=== PATIENT | female | born 1990 | race Caucasian/White ===

== ENCOUNTER → 2017-09-24 08:14 | Outpatient (CLI) | payer BC, SELFPAY ==
--- NOTE | 2017-09-24 08:16 | XR_ITS ---
Left foot Weightbearing Foot 3 Views HISTORY: Medial foot pain ORDERING PHYSICIAN: Lisa Gustafson DPM PATIENT AGE: 27 years COMPARISON: None FINDINGS: No fracture or dislocation. No lytic or blastic change. There is normal mineralization.. The joint spaces are well-preserved. No significant degenerative/arthritic changes. No erosive changes evident. IMPRESSION: Negative, no acute finding
--- NOTE | 2017-09-24 08:16 | XR_ITS ---
Right foot Weightbearing Foot 3 Views HISTORY: Follow-up surgery ORDERING PHYSICIAN: Lisa Gustafson DPM PATIENT AGE: 27 years COMPARISON: 04/17/2013 FINDINGS: There has been prior bunionectomy of the distal first metatarsal with placement of a large staple at the proximal aspect of the proximal phalanx of the great toe with some decrease in the hallux valgus deformity. There remains [id number] hallux valgus with first metatarsophalangeal angle of 32 degrees. There has been prior fusion of the first metatarsal tarsal joint with a dorsomedial bone plate. No acute fracture or dislocation. No lytic or blastic change. IMPRESSION: Status post bunionectomy of the distal first metatarsal with fusion of the first metatarsotarsal joint with moderate hallux valgus
[2017-09-24 10:54] LABS: Basophils % 0.3 % (0.1-2.0); Eosinophils # 0.1 K/mm3 (0.0-0.4); Eosinophils % 1.7 % (0.1-12.0); Hematocrit 40.7 % (37.0-47.0); Hemoglobin 13.3 g/dL (12.2-16.2); Lymphocytes # 2.1 K/mm3 (0.7-4.5); Lymphocytes % 34.3 K/mm3 (10-50); Mean Corpuscular HGB Conc 32.8 g/dL (31.8-35.4); Mean Corpuscular Hemoglobin 29.7 pg (27.0-31.2); Mean Corpuscular Volume 90.6 fl (81-99); Mean Platelet Volume 8.4 fl (7.4-10.4); Monocytes # 0.3 K/mm3 (0.1-1.0); Monocytes % 4.2 % (1.7-9.3); Neutrophils # 3.6 K/mm3 (1.8-7.8); Neutrophils % 59.5 % (37.0-80.0); Platelet Count 156 K/mm3 (142-424); Red Blood Count 4.49 M/mm3 (4.20-5.40); Red Cell Distribution Width 12.4 % (11.5-17.5)
[2017-09-24 11:53] LABS: Anion Gap 12.1 mEq/L (5-15); Blood Urea Nitrogen 14 mg/dL (7-18); Carbon Dioxide 28 mmol/L (21.0-32.0); Chloride 106 mmol/L (98-107); Creatinine,Serum 0.69 mg/dL (0.55-1.02); Estimated Glomerular Filt Rate 103 ml/min (>60); GFR (African American) 124 ML/MIN (>60); Glucose 87 mg/dL (74-106); Potassium 4.1 mmoL/L (3.5-5.1); Sodium 142 mmol/L (136-145)
[2017-09-24 11:55] LABS: HCG,Quantitative 1 mIU/mL
== END ==
PROVIDERS: Visit Provider Podiatrist
DX: M79.672 Pain in left foot (principal); M79.671 Pain in right foot
CPT/HCPCS: 36415; 73630; 80048; 84702; 85025

== ENCOUNTER → 2017-10-25 08:21 | Outpatient (CLI) | payer BC, SELFPAY ==
--- NOTE | 2017-10-25 08:22 | XR_ITS ---
XR foot wt bearing LT 3V HISTORY: Follow-up fusion ITS.REASON: postop views ORDERING PHYSICIAN: Lisa Gustafson DPM PATIENT AGE: 27 years COMPARISON: 10/11/2017 FINDINGS: The cast has been removed. There has been prior arthrodesis of the first metatarsal tarsal junction with a dorsal bone plate and an oblique screw through the osteotomy of the base of the first metatarsal. There is good alignment. IMPRESSION: Interval cast removal otherwise no change status post arthrodesis and osteotomy of the first metatarsotarsal junction with good alignment
== END ==
PROVIDERS: Visit Provider Podiatrist
DX: Z98.890 Other specified postprocedural states (principal)
CPT/HCPCS: 73630

== ENCOUNTER → 2017-11-07 10:43 | Outpatient (CLI) | payer BC, SELFPAY ==
--- NOTE | 2017-11-07 10:43 | XR_ITS ---
XR foot wt bearing LT 3V HISTORY: Follow-up surgery/fusion ITS.REASON: post-op views ORDERING PHYSICIAN: Lisa Gustafson DPM PATIENT AGE: 27 years COMPARISON: None FINDINGS: Good alignment status post arthrodesis of the first metatarsal tarsal joint stabilized by a dorsal medial bone plate and an oblique screw appears stable. There is mild hypertrophic change along the ventral aspect of the joint space. IMPRESSION: No change in good alignment status post arthrodesis first metatarsal tarsal joint
== END ==
LOC: LAB 10:43 → RAD 10:48
PROVIDERS: Visit Provider Podiatrist
DX: Z98.890 Other specified postprocedural states (principal)
CPT/HCPCS: 73630

== ENCOUNTER → 2017-11-18 12:30 | Outpatient (CLI) | payer BC, SELFPAY ==
[2017-11-18 12:46] LABS: Basophils % 0.4 % (0.1-2.0); Eosinophils # 0.2 K/mm3 (0.0-0.4); Eosinophils % 3.8 % (0.1-12.0); Hematocrit 40.2 % (37.0-47.0); Mean Corpuscular HGB Conc 32.3 g/dL (31.8-35.4); Mean Corpuscular Hemoglobin 29.1 pg (27.0-31.2); Mean Corpuscular Volume 90.1 fl (81-99); Monocytes # 0.3 K/mm3 (0.1-1.0); Monocytes % 5.7 % (1.7-9.3); Neutrophils # 2.1 K/mm3 (1.8-7.8); Neutrophils % 47.2 % (37.0-80.0); Platelet Count 162 K/mm3 (142-424); Red Blood Count 4.47 M/mm3 (4.20-5.40); Red Cell Distribution Width 12.5 % (11.5-17.5); White Blood Count 4.5 K/mm3 (4.8-10.8)
[2017-11-18 13:57] LABS: C-Reactive Protein 1.1 mg/L (0.0-0.9)
[2017-11-18 14:41] LABS: Erythrocyte Sedimentation Rate 21 mm/hr (0-20)
== END ==
PROVIDERS: Visit Provider Podiatrist
DX: Z98.890 Other specified postprocedural states (principal)
CPT/HCPCS: 36415; 85025; 85651; 86140; 87070; 87205

== ENCOUNTER → 2017-12-10 13:56 | Outpatient (CLI) | payer BC, SELFPAY ==
--- NOTE | 2017-12-10 13:56 | XR_ITS ---
XR foot wt bearing LT 3V HISTORY: Follow-up fusion/surgery ITS.REASON: post-op views ORDERING PHYSICIAN: Lisa Gustafson DPM PATIENT AGE: 27 years COMPARISON: 11/07/2017 FINDINGS: Status post fusion of the first metatarsal tarsal joint with dorsal bone plate. There remains good alignment. No acute findings evident. IMPRESSION: Good alignment status post fusion of the first metatarsal tarsal joint
== END ==
PROVIDERS: Visit Provider Podiatrist
DX: Z98.890 Other specified postprocedural states (principal)
CPT/HCPCS: 73630

== ENCOUNTER 2017-12-10 15:00 | Outpatient (RCR) | payer BC, SELFPAY ==
--- NOTE | 2017-11-22 11:10 | HMH.PTOPEV ---
PT Outpatient Evaluation Rehab PT Outpatient Evaluation Start: 11/22/17 10:17 Freq: Status: Active Protocol: Document 11/22/17 10:18 MICHAEL (Rec: 11/22/17 11:10 MICHAEL [id number]) Electronically Signed By Marcelino Sanchez, PT 11/22/17 10:18 Outpatient Therapy Subjective History Subjective History Pt presents s/p L lapidus bunionectomy on 10/11/17, with some lingering L foot soreness /pain. Pt reports increased L foot pain with wt. bearing activities, and some residual weakness. Pt reports same procedure on R foot with quicker recovery, however, reports 'this one feels okay, just think it's healing a bit slower'. Chief Complaint Pain Stiff Weakness Symptom Type Ache Sharp Dull Symptoms Relieved By Rest/Positioning Ice Symptoms Aggravated By Standing Physical Activity Walking Prior Functional Limitations Standing Walking Current Functional Limitations Housework Standing Recreation Activity Stairs Symptom Description Constant but Variable Level of pain today (0-10) 6 Pain scale - at its best (0-10) 3 Pain scale - at its worst (0-10) 9 Ankle/Foot Eval Gait Observation General Gait Pattern Observation Antalgic Gait Assistive Device Ambulation Assistive Device Axillary Crutches Palpation Tenderness left Ankle/Foot Palpation Overall Comment / sx. area/1st MT ROM right Ankle/Foot Dorsiflexion w/Knee Extended 0-20 Active Range Motion (degrees) Ankle/Foot Plantar Flexion Active Range 0-50 of Motion (degrees) Ankle/Foot Eversion Active Range of 0-15 Motion (degrees) Ankle/Foot Inversion Active Range of 0-60 Motion (degrees) Ankle/Foot ROM Limitations Soft Tissue Tightness Great Toe Metatarsophalangeal Extension 0-15 Active Range Motion (degrees) Great Toe Metatarsophalangeal Flexion 0-45 Active Range of Motion (degrees) left Ankle/Foot Dorsiflexion w/Knee Extended +10 Active Range Motion (degrees) Ankle/Foot Plantar Flexion Active Range 10-45 of Motion (degrees) Ankle/Foot Eversion Active Range of 0-15 Motion (degrees)
== END 2017-12-10 15:01 | disposition home or self-care (01) ==
LOC: PT 15:00
PROVIDERS: Family Provider Family Medicine; Visit Provider Podiatrist
DX: Z98.890 Other specified postprocedural states (principal)
CPT/HCPCS: 97010; 97014; 97016; 97110; 97112; 97140; 97163; G0283

== ENCOUNTER → 2017-12-11 15:54 | Outpatient (CLI) | payer BC, SELFPAY ==
--- NOTE | 2017-12-11 15:54 | XR_ITS ---
XR foot wt bearing RT 3V HISTORY: Medial right foot pain ITS.REASON: pain ORDERING PHYSICIAN: Lisa Gustafson DPM PATIENT AGE: 27 years COMPARISON: 09/24/2017 FINDINGS: There has been prior bunionectomy of the distal first metatarsal with placement of a large staple at the proximal aspect of the proximal phalanx of the great toe with no change in the mild hallux valgus and mild valgus angulation of the distal aspect of the first metatarsal. There has been prior fusion of the first metatarsal tarsal joint with a dorsomedial bone plate. No acute fracture or dislocation. No lytic or blastic change. IMPRESSION: Status post bunionectomy of the distal first metatarsal with fusion of the first metatarsotarsal joint with moderate hallux valgus with overall no significant change
== END ==
PROVIDERS: Visit Provider Podiatrist
DX: Z01.818 Encounter for other preprocedural examination (principal); M79.671 Pain in right foot
CPT/HCPCS: 73630

== ENCOUNTER → 2017-12-26 12:10 | Outpatient (CLI) | payer SELFPAY ==
--- NOTE | 2017-12-26 12:10 | XR_ITS ---
XR foot wt bearing RT 3V HISTORY: Follow-up surgery ITS.REASON: post-op view ORDERING PHYSICIAN: Lisa Gustafson DPM PATIENT AGE: 27 years COMPARISON: 12/12/2017 FINDINGS: The cast has been removed. Dorsal bone plate is once again noted at the proximal aspect of the first metatarsal. There are 2 screws present at the proximal first metatarsal extending into the base of the second metatarsal. Osteotomy noted at the base of the first metatarsal. There is been prior bunionectomy at the first metatarsal with a staple within the proximal aspect of the proximal phalanx of the great toe and a screw within the distal aspect of the second metatarsal. Overall no change compared to the previous exam. IMPRESSION: Postsurgical changes as described above which appear stable
== END ==
PROVIDERS: Visit Provider Podiatrist
DX: Z98.890 Other specified postprocedural states (principal)
CPT/HCPCS: 73630

== ENCOUNTER → 2018-01-09 10:32 | Outpatient (CLI) | payer BC, SELFPAY ==
--- NOTE | 2018-01-09 10:34 | XR_ITS ---
XR foot wt bearing RT 3V, XR foot wt bearing LT 3V Ordering Physician: Lisa Gustafson DPM Patient Age: 27 years: Female HISTORY: ITS.REASON: post-op TECHNIQUE: Right foot 3 views weightbearing Left foot 3 view weightbearing COMPARISON. Multiple previous studies bilateral ======= RIGHT FOOT 3 view weightbearing prior bunionectomy of distal first metatarsal withplacement of metallic stable at proximal aspect of the proximal phalanx ofthe great toe .There has been resection of the medial head of the first metatarsal Reduced mild hallux valgus and mild valgusangulation of the distal aspect of the first metatarsal on today's study versus initial studies. The initial plate right which bridged and fused the first tarsal-metatarsal joint has been revised. Now the The shorter dorsal plate seen on 12/26/2017 appears to involve just the proximal first metatarsal & secured by several screws entering posteriorly.,. There are 2 longer screws entering medially continue through the proximal first metatarsal into the proximal second metatarsal.. These features appear stable when compared to 12/26/2017. Also note a small screw entering the dorsal head of second metatarsal which is stable since 12/26/2017 but new since 12/11/2017.... Question subtle changes at the IP joint of second toe as well. Surgical correlation required here . No acute fracture or dislocation. No lytic or blastic change.. Soft tissue swelling persists at the foot IMPRESSION: Status post bunionectomy procedure. Osseous and fixation elements stable since 12/26/2017 radiograph ========= LEFT FOOT 3 views weightbearing foot On the left comparison is made to 620 12/02 and 11/07/2017. fusion at the first tarsal metatarsal joint with dorsal bone plate applied here superior multiple screws. There remains good alignment at the surgical region and first toe. Upper normal distance between of first and second metatarsal noted and stable stable. IMPRESSION Stable position of osseous and fixation elements. Fusion first metatarsal metatarsal joint
== END ==
PROVIDERS: Visit Provider Podiatrist
DX: Z98.890 Other specified postprocedural states (principal)
CPT/HCPCS: 73630

== ENCOUNTER → 2018-02-06 09:48 | Outpatient (CLI) | payer BC, SELFPAY ==
--- NOTE | 2018-02-06 09:50 | XR_ITS ---
XR foot wt bearing LT 3V HISTORY: Follow-up surgery ITS.REASON: postop views ORDERING PHYSICIAN: Lisa Gustafson DPM PATIENT AGE: 27 years COMPARISON: 01/09/2018 FINDINGS: Status post first metatarsal tarsal fusion with posterior bone plate in place. There is good alignment with no evidence of orthopedic complication. IMPRESSION: Overall no change status post first metatarsal tarsal fusion
--- NOTE | 2018-02-06 09:50 | XR_ITS ---
XR foot wt bearing RT 3V HISTORY: Follow-up surgery ITS.REASON: postop views ORDERING PHYSICIAN: Lisa Gustafson DPM PATIENT AGE: 27 years COMPARISON: 01/09/2018 FINDINGS: Status post bunionectomy of the first metatarsal distally with a staple in the proximal aspect of the proximal phalanx of the first digit. A bone plate present overlying the proximal aspect of the first metatarsal. Displacement does not appear flush with the overlying bone. There are 2 transverse screws through the proximal aspect of the first metatarsal into the proximal aspect of the second metatarsal. The most proximal screws unchanged. A second screw is present through the proximal to mid aspect of the first metatarsal into the proximal to mid aspect of the second metatarsal. THIS SCREW HAS SLIGHTLY WITHDRAWN COMPARED TO THE PREVIOUS EXAM by approximately 2 mm. IMPRESSION: Postsurgical changes as described above. Prior bunionectomy. There is a screw which appears to be distracting at the proximal to mid aspect of the first metatarsal as described above
== END ==
PROVIDERS: Visit Provider Podiatrist
DX: Z98.890 Other specified postprocedural states (principal)
CPT/HCPCS: 73630

== ENCOUNTER 2018-02-25 09:30 | Outpatient (RCR) | payer BC, SELFPAY ==
--- NOTE | 2018-02-12 11:13 | HMH.PTOPEV ---
PT Outpatient Evaluation Rehab PT Outpatient Evaluation Start: 02/12/18 08:16 Freq: Status: Active Protocol: Document 02/12/18 08:32 LITTLEKETTY (Rec: 02/12/18 09:01 LUIS [id number]) Electronically Signed By Dino Prince, PT 02/12/18 08:32 Outpatient Therapy Subjective History Subjective History Pt. is a 27 year old female presenting s/p bunionectomy revision of the R foot which occured on 12-12-17. Pt. has been wearing a spacer between the great toe and the second digit, as well as a CAM walking boot for the past 4 weeks. Chief Complaint Pain Symptom Type Ache Symptoms Relieved By Rest/Positioning Ice Symptoms Aggravated By Standing Physical Activity Walking Prior Functional Limitations None Current Functional Limitations Driving Standing Recreation Activity Walking Stairs Symptom Description Constant but Variable Pain at Rest Activity Dependent Level of pain today (0-10) 3 Pain scale - at its best (0-10) 3 Pain scale - at its worst (0-10) 7 Ankle/Foot Eval Palpation Tenderness right Ankle/Foot Palpation Findings Tenderness Ankle/Foot Palpation Overall Comment 1/4 TTP along R 5th metatarsal and R posterolateral foot ROM left Ankle/Foot ROM Reason Not Measured Within Functional Limits Great Toe ROM Reason Not Measured Within Functional Limits right Ankle/Foot Dorsiflexion w/Knee Extended WNL per observation Active Range Motion (degrees) Ankle/Foot Plantar Flexion Active Range WNL per observation of Motion (degrees) Ankle/Foot Eversion Active Range of WNL per observation Motion (degrees) Ankle/Foot Inversion Active Range of WNL per observation Motion (degrees) Great Toe Metatarsophalangeal Extension 0 per observation Active Range Motion (degrees) Great Toe Metatarsophalangeal Extension WNL Passive Range Motion (degrees) Great Toe Metatarsophalangeal Flexion <10 per observation Active Range of Motion (degrees) Great Toe Metatarsophalangeal Passive WNL Flexion Range Motion (degrees) Great Toe ROM Limitations Pain MMT Ankle Dorsiflexion Strength Grade 5 Normal Ankle Plantarflexion Strength Grade 5 Normal Foot Eversion Strength Grade Not Tested Foot Inversion Strength Grade Not
== END 2018-02-25 09:31 | disposition home or self-care (01) ==
LOC: PT 09:30
PROVIDERS: Family Provider Family Medicine; Visit Provider Podiatrist
DX: Z98.890 Other specified postprocedural states (principal)
CPT/HCPCS: 97010; 97014; 97110; 97140; 97163; G0283

== ENCOUNTER → 2018-03-17 08:59 | Outpatient (CLI) | payer BC, SELFPAY ==
--- NOTE | 2018-03-17 09:01 | XR_ITS ---
XR foot wt bearing LT 3V HISTORY: Follow-up surgery ITS.REASON: postop views ORDERING PHYSICIAN: Lisa Gustafson DPM PATIENT AGE: 27 years COMPARISON: None FINDINGS: There is a bone plate over the dorsal medial aspect of the first metatarsal tarsal junction along with an oblique screw at this region as well. Normal alignment. No fracture or dislocation. Mild hypertrophic changes are present at the base of the first and second metatarsals junction. IMPRESSION: Postsurgical changes of the left foot as described above unchanged
--- NOTE | 2018-03-17 09:01 | XR_ITS ---
XR foot wt bearing RT 3V HISTORY: Follow-up surgery ITS.REASON: postop views ORDERING PHYSICIAN: Lisa Gustafson DPM PATIENT AGE: 27 years COMPARISON: 02/06/2018 FINDINGS: Status post bunionectomy of the first metatarsal distally with a staple in the proximal aspect of the proximal phalanx of the first digit. Dorsal bone plate is noted over the proximal aspect of the first metatarsal stabilizing a nondisplaced transverse fracture proximally. There are 2 transverse screws in the proximal aspect of the first metatarsal one which extends into the base of the second metatarsal and one of which extends into the proximal shaft of the second metatarsal. The screw may be distracted slightly as noted previously. A small screws present in the tip of the second metatarsal. There is good alignment. IMPRESSION: Postsurgical changes of the right foot which appear stable as described above
== END ==
PROVIDERS: PCP Family Medicine; Visit Provider Podiatrist
DX: Z98.890 Other specified postprocedural states (principal)
CPT/HCPCS: 73630

== ENCOUNTER → 2018-06-19 10:25 | Outpatient (CLI) | payer BC, SELFPAY ==
--- NOTE | 2018-06-19 10:36 | XR_ITS ---
XR sacrum coccyx min 2V CLINICAL INDICATION: ITS.REASON: LOW BACK PAIN ORDERING PHYSICIAN: ADEOLA Bueno PATIENT AGE: 28 years Comparison: None FINDINGS: No bony or joint abnormality. As I joints have an unremarkable appearance. IMPRESSION: Negative sacrum/coccyx
--- NOTE | 2018-06-19 10:37 | XR_ITS ---
EXAM: XR lumbar spine min 4V HISTORY: ITS.REASON: OW BACK PAIN ORDERING PHYSICIAN: ADEOLA Bueno PATIENT AGE: 28 years COMPARISON: None FINDINGS: Normal alignment. No fracture or dislocation. No lytic or blastic change. No significant degenerative change. The disc spaces are preserved. There is a mild lower lumbar curvature convex left IMPRESSION: Minimal lower lumbar curvature convex left otherwise negative lumbar spine
== END ==
PROVIDERS: PCP Family Medicine; Visit Provider Physician Assistant
DX: M54.5 Low back pain (principal)
CPT/HCPCS: 72110; 72220

== ENCOUNTER → 2018-06-20 15:38 | Outpatient (CLI) | payer BC, SELFPAY ==
--- NOTE | 2018-06-20 15:45 | CT_ITS ---
CT abdomen pelvis wo con CLINICAL INDICATION: Low back pain with hematuria, flank pain ITS.REASON: HEMATURIA ORDERING PHYSICIAN: ADEOLA Bueno PATIENT AGE: 28 years COMPARISON: None TECHNIQUE: Axial images obtained with sagittal and coronal reformats. All CT scans at the facility use one or more dose reduction, viz: automated exposure control, ma/kV adjustment per patient size (including targeted exams where dose is matched to indication, i.e. head), or iterative reconstruction technique. PROCEDURE: Oral Contrast: None IV Contrast: None . FINDINGS: Lung bases are clear. There has been a prior cholecystectomy. The liver, spleen, and adrenal glands have an unremarkable unenhanced appearance. There are small lymph nodes in the periaortic region. No renal or ureteral calculi. No hydronephrosis. Unremarkable urinary bladder. There is no evidence of appendicitis or diverticulitis. Prior hysterectomy. No pelvic mass abnormal fluid collection or focal inflammatory change or focal fluid collection evident. No acute bony anomalies. IMPRESSION: No acute abdominal or pelvic findings
== END ==
PROVIDERS: PCP Family Medicine; Visit Provider Physician Assistant
DX: R31.9 Hematuria, unspecified (principal)
CPT/HCPCS: 74176

== ENCOUNTER → 2018-09-16 15:08 | Outpatient (CLI) | payer BC, SELFPAY ==
--- NOTE | 2018-09-16 15:15 | XR_ITS ---
XR foot wt bearing LT 3V HISTORY: ITS.REASON: pain ORDERING PHYSICIAN: Lisa Gustafson DPM PATIENT AGE: 28 years COMPARISON: Weight-bearing views left foot 03/17/2018 FINDINGS: A metallic plate is seen fusing the first cuneiform bone with the base of the first metatarsal fixated by 5 threaded screws the proximal 2 screws are in the first cuneiforms bone the distal 2 screws are in the base of the first metatarsal and there is an oblique threaded screw connecting the first cuneiform bone with with the first metatarsal base of the distal first metatarsal appears normal and the proximal distal phalanx of the great toe are normal. The foot is otherwise unremarkable. The plantar arch is normal.. The joint spaces are well-preserved. No significant degenerative/arthritic changes. No erosive changes evident. IMPRESSION: Stable postsurgical changes with fusion first cuneiform bone into the base of the first metatarsal
--- NOTE | 2018-09-16 15:15 | XR_ITS ---
XR foot wt bearing RT 3V HISTORY: ITS.REASON: pain ORDERING PHYSICIAN: Lisa Gustafson DPM PATIENT AGE: 28 years COMPARISON: Weight-bearing films right foot 03/17/2018 FINDINGS: Metallic hardware is again seen at the base of first metatarsal stable and unchanged from the previous study. 2 horizontally directed threaded screws traverse the base of the first metatarsal head driven into the cortex of the base of the second metatarsal. There has been osteotomy through the first metatarsal head for bunionectomy. The metallic staple seen in the base of the proximal phalanx of the great toe. A tiny screw is seen in the head of the second metatarsal. The plantar arch is normal. The soft tissues are normal. Stable post bunionectomy surgery IMPRESSION: Stable post bunionectomy surgery
== END ==
PROVIDERS: PCP Family Medicine; Visit Provider Podiatrist
DX: M79.671 Pain in right foot (principal)
CPT/HCPCS: 73630

== ENCOUNTER → 2020-01-11 16:17 | Outpatient (CLI) | payer BC, SELFPAY ==
--- NOTE | 2020-01-11 16:19 | XR_ITS ---
PROCEDURE: XR FOOT WT BEARING RT 3V CLINICAL INDICATION: pain Right foot pain for a month. Patient had bunion surgery a couple months ago. COMPARISON: [id number] XR foot wt bearing LT 3V from 03/17/2018 [id number] XR foot wt bearing RT 3V from 03/17/2018 [id number] XR foot wt bearing LT 3V from 09/16/2018 [id number] XR foot wt bearing RT 3V from 09/16/2018 FINDINGS: Again noted metallic hardware at the base of the 1st metatarsal stable, unchanged from the prior study. There has been osteotomy to the 1st metatarsal head for bunionectomy. The metallic staple is again seen in the base of the proximal phalanx of the great toe. A tiny screw is also again seen in the head of the 2nd metatarsal. Redemonstrated bony fusion of the 1st tarsometatarsal articulation. There is a hallux valgus with moderate arthrosis of the 1st MTP articulation. There is also mild/moderate arthrosis of the 2nd MTP articulation. The plantar arch is unremarkable. No acute bony pathology is noted. The soft tissues are normal. IMPRESSION: 1. No acute findings. 2. Hallux valgus with moderate arthrosis of the 1st MTP articulation. Mild/moderate arthrosis of the 2nd MTP articulation. 3. Stable post bunionectomy surgery. Dictated by: Sara Forbes 01/11/2020 16:54 Electronically signed by Sara Forbes in [place] 01/11/2020 16:54
== END ==
PROVIDERS: PCP Family Medicine; Visit Provider Podiatrist
DX: M79.673 Pain in unspecified foot (principal)
CPT/HCPCS: 73630

== ENCOUNTER → 2021-02-25 11:24 | Outpatient (CLI) | payer BC, SELFPAY | PROVIDERS: Visit Provider Nurse Practitioner Family | DX: Z20.822 Contact with and (suspected) exposure to COVID-19 (principal); U07.1 COVID-19 | CPT/HCPCS: C9803; U0003; U0005 ==

== ENCOUNTER 2022-07-27 11:27 | Emergency (ER) | payer MEDICAID, SELFPAY ==
[2022-07-27 11:45] VITALS: BP 113/81; PULSE 97; RESP 20; TEMP 37; O2SAT 96; BMI 25.8
[2022-07-27 12:00] LABS: UTC Strep Screen (Rapid) Negative (Negative)
--- NOTE | 2022-07-27 12:06 | EXP.UTC ---
Discharge Plan Disposition Patient Disposition: Home, Self-Care Condition: Good Prescriptions Prescriptions: New prednisone [prednisone] 20 mg tablet 20 mg PO BID 5 Days Qty: 10 0RF amoxicillin-pot clavulanate 875-125 mg Tablet 1 tab PO Q12H Qty: 20 0RF No Action amitriptyline 25 mg tablet 50 mg PO DAILY 30 Days Qty: 60 Label Comments: escitalopram oxalate 10 mg tablet PO 30 Days Qty: 30 Referrals Follow up/Referrals: Osvaldo Matos [Primary Care Provider] - See instructions Clinical Impressions Clinical Impression: Bilateral otitis media Instructions Patient Instructions: DI for Otitis Media (Middle Ear Infection)-Child Discharge ED Provider[place] Анна Cruz [facility] [place] General Stated complaint: Sore throat bodyaches Mode of Arrival: Ambulatory Source of Information: Patient Limitations: No Limitations Time Seen by Provider: 07/27/22 12:06 Description of Symptoms (Recalled from Triage Doc. by RN): sore throat, body aches, and both ears HEENT Symptoms (Recalled from RN notes): Yes Resp Symptoms (Recalled from RN notes): No Skin Symptoms (Recalled from RN notes): No MS Symptoms (Recalled from RN notes): No Functional Status (Recalled from RN notes): n/a History of Present Illness Provider Complaint: Sore throat, body aches, ear pain, swollen gland X 4 days. No fever. Onset (ago): day(s) (4) Relieving factors: none Exacerbating factors: none Associated symptoms: fever/chills, headaches and malaise Treatments prior to arrival: none Related Data Home Medications Medication Instructions Recorded Confirmed amitriptyline 25 mg tablet 50 mg PO DAILY stomach pains after 09/24/17 02/25/21 gb sx 30 days ##60 escitalopram oxalate 10 mg tablet PO 30 days #30 tabs 09/16/18 02/25/21 Previous Rx's Medication Instructions Recorded amoxicillin 875 mg-potassium 1 tab PO Q12H #20 tabs 07/27/22 clavulanate 125 mg tablet prednisone 20 mg tablet 20 mg PO BID 5 days #10 tabs 07/27/22 Allergies Allergy/AdvReac Type Severity Reaction Status Date / Time No Known Drug Allergies Allergy Unknown Verified 07/27/22 12:05 Worker's Comp Is this a Worker's Comp case?: No [facility] Disclaimer: The information contained in this section may have been updated after the patient was seen, as this information can be updated by other users. 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 current occupational exposures/hazards: No caffeine: No ROS Obtained: Yes All systems reviewed & no additional complaints except as documented Constitutional Constitutional: Reports body ache, Reports chills, Denies fever(s) and Reports malaise ENT Ears, Nose, Mouth, and Throat: Reports sore throat Hematologic/Lymphatic Henatologic/Lymphatic: Reports lymphadenopathy Physical Exam General General appearance: alert and in no apparent distress Head Head exam: atraumatic, normocephalic and normal inspection Eye Eye exam: Present normal appearance, PERRL and EOMI ENT ENT exam: Present normal exam, normal oropharynx, mucous membranes moist and normal external ear exam Expanded ENT Exam TM/Canal exam: Bilateral TM: erythema and bulging Neck Neck exam: Present normal inspection, full ROM, trachea midline and lymphadenopathy; Absent meningismus Chest Chest inspection: Present normal inspection and symmetric chest wall rise; Absent tenderness Respiratory Respiratory exam: Present normal lung sounds bilaterally; Absent respiratory distress Cardiovascular Cardiovascular exam: Present regular rate and normal rhythm; Absent JVD Abdominal Exam Abdominal exam: Present soft and normal bowel sounds; Absent
[2022-07-27 12:42] VITALS: BP 113/81; PULSE 97; RESP 20; TEMP 37; O2SAT 96
== END 2022-07-27 12:41 | disposition home or self-care (01) ==
PROVIDERS: Emergency Provider Physician Assistant; PCP Family Medicine
DX: H66.93 Otitis media, unspecified, bilateral (principal)
CPT/HCPCS: 87880; 99212; 99213; G0463

== ENCOUNTER → 2022-08-29 22:50 | Outpatient (CLI) | payer MEDICAID, SELFPAY | PROVIDERS: PCP Nurse Practitioner Family; Visit Provider Nurse Practitioner Family | DX: J02.9 Acute pharyngitis, unspecified (principal) | CPT/HCPCS: 87070 ==

== ENCOUNTER → 2022-10-12 16:51 | Outpatient (CLI) | payer MEDICAID, SELFPAY | PROVIDERS: PCP Student in an Organized Health Care Education/Training Program; Visit Provider Student in an Organized Health Care Education/Training Program | DX: J02.9 Acute pharyngitis, unspecified (principal) | CPT/HCPCS: 87070 ==

== ENCOUNTER 2023-03-30 12:24 | Inpatient (IN) | payer MEDICAID, SELFPAY ==
[2023-03-30] VITALS (14 sets, daily range): BP systolic 108–136; BP diastolic 69–87; PULSE 64–73; RESP 16–20; TEMP 36.5–36.8; O2SAT 94–100; BMI 26.6; BMI 27.7
[2023-03-30 12:42] LABS: Microscopic, Urine URINE MICROSCOPIC (MICROSCOPIC)
[2023-03-30 12:56] LABS: Appearance,Urine CLEAR (Clear); Bilirubin,Urine Negative (Negative); Blood, Urine Negative (Negative); Color,Urine YELLOW (Yellow); Glucose,Urine (UA) Negative (Negative); Ketones,Urine Negative (Negative); Leukocyte Esterase,Urine 1+ (Negative); Nitrate,Urine Negative (Negative); PH,Urine 8.5 (5.0-8.5); Protein,Urine Negative (Negative); Specific Gravity, Urine 1.015 (1.005-1.030); Urobilinogen,Urine 0.2 EU/dl (0.2)
[2023-03-30 13:20] LABS: Bacteria,Urine 1+ /lpf; RBC,Urine Occasional #/hpf (0-3)
--- NOTE | 2023-03-30 13:32 | CT_ITS ---
PROCEDURE INFORMATION: Exam: CT Abdomen And Pelvis With Contrast Exam date and time: 03/30/2023 2:18 PM Age: 32 years old Clinical indication: Abdominal pain; Epigastric; Additional info: Epigastric/ruq pain TECHNIQUE: Imaging protocol: Computed tomography of the abdomen and pelvis with contrast. Radiation optimization: All CT scans at this facility use at least one of these dose optimization techniques: automated exposure control; mA and/or kV adjustment per patient size (includes targeted exams where dose is matched to clinical indication); or iterative reconstruction. Contrast material: ISOVUE; Contrast volume: 75 ml; Contrast route: IV; REPORTING DATA: Count of CT and Cardiac NM exams in prior 12 months: This patient has received 0 known CTs and 0 known cardiac nuclear medicine studies in the 12 months prior to the current study. COMPARISON: [facility] [place] CT abdomen pelvis wo con 06/20/2018 3:47 PM FINDINGS: Liver: Normal. No mass. Gallbladder and bile ducts: Previous cholecystectomy. Pancreas: Normal. No ductal dilation. Spleen: Normal. No splenomegaly. Adrenal glands: Normal. No mass. Kidneys and ureters: Normal. No hydronephrosis. Stomach and bowel: No bowel wall thickening or evidence of obstruction. Appendix: No evidence of appendicitis. Intraperitoneal space: Unremarkable. No free air. No significant fluid collection. Vasculature: Unremarkable. No abdominal aortic aneurysm. Lymph nodes: Increased number of unenlarged mesenteric lymph nodes with mild mesenteric edema. Nonspecific finding, likely infectious or inflammatory process. Urinary bladder: Unremarkable as visualized. Reproductive: Unremarkable as visualized. Bones/joints: Unremarkable. No acute fracture. Soft tissues: Unremarkable. IMPRESSION: Increased number of unenlarged mesenteric lymph nodes with mild mesenteric edema. Nonspecific finding, likely infectious or inflammatory process.
--- NOTE | 2023-03-30 13:32 | HMH.EDGENADL ---
Discharge Plan Disposition Patient Disposition: Admitted Condition: Fair Prescriptions Prescriptions: No Action clopidogrel 75 mg tablet 75 mg PO DAILY estradiol 1 mg tablet 1 mg PO DAILY Rx Instructions: off 1 week; repeat cycle amitriptyline 25 mg tablet 50 mg PO DAILY 30 Days Qty: 60 Patient Comments: escitalopram oxalate 10 mg tablet 10 mg PO DAILY 30 Days Qty: 30 omeprazole 40 mg capsule,delayed release(DR/EC) 40 mg PO DAILY Patient Comments: TAKE 1 CAPSULE BY MOUTH EVERY DAY colestipol 1 gram tablet 1 g PO DAILY Patient Comments: TAKE 2 TABLETS BY MOUTH DAILY Referrals Follow up/Referrals: Osvaldo Matos [Primary Care Provider] - See instructions Clinical Impressions Clinical Impression: Pancreatitis Qualifiers: Chronicity: acute Pancreatitis type: unspecified pancreatitis type Acute pancreatitis complication: unspecified Qualified Code(s): K85.90 - Acute pancreatitis without necrosis or infection, unspecified Urinary tract infection Qualifiers: Urinary tract infection type: site unspecified Hematuria presence: without hematuria Qualified Code(s): N39.0 - Urinary tract infection, site not specified Instructions Patient Instructions: DI for Acute Abdominal Pain Discharge ED Provider: Stevie Zapata General Adult HPI <Francisco Leal MD - Last Filed: 03/30/23 15:57> General Chief complaint: Abdominal Pain Stated complaint: abd pain, discolored urine Time Seen by Provider: 03/30/23 13:23 Mode of Arrival: Ambulatory Source of Information: Patient Limitations: No Limitations Description of Symptoms (Recalled from ER Triage Doc. by RN): PT STATES SHE WAS SEEN AT THE DR ON SATURDAY WHERE SHE WAS DX W/ A UTI AND SENT HOME ON ANTIBIOTICS, SHE STATES THE ANTIBIOTIC MADE HER SICK AND HAVE DIARRHEA SO; SHE STOPPED TAKING IT, REPORTS TAKING 2 DOSES, REPORTS UPPER RIGHT ABDOMINAL PAIN AND NOT EATING MUCH FOR THE LAST WEEK, DENIES BURNING WITH URINATION History of Present Illness HPI narrative: This 32-year-old female presents to the emergency department with concerns of abdominal pain. Patient states she was evaluated at urgent care on Saturday where she was told she had a UTI and strep and was sent home on Augmentin. She states she only took 2 doses and she started having worsening vomiting and significant diarrhea that was to the point she was unable to sleep. Patient states she has had poor appetite for the last week. She denies any dysuria. She denies any back pain. Patient denies bloody or black stools. Patient states she has never had sore throat and is unsure why she was tested for strep. She denies fevers. She has had hysterectomy and cholecystectomy. Related Data Home Medications Medication Instructions Recorded Confirmed amitriptyline 25 mg tablet 50 mg PO DAILY stomach pains after 09/24/17 03/30/23 gb sx 30 days ##60 escitalopram oxalate 10 mg tablet 10 mg PO DAILY 30 days #30 tabs 09/16/18 03/30/23 clopidogrel 75 mg tablet 75 mg PO DAILY 08/29/22 03/30/23 estradiol 1 mg tablet 1 mg PO DAILY 08/29/22 03/30/23 colestipol 1 gram tablet 1 g PO DAILY 03/30/23 03/30/23 omeprazole 40 mg capsule,delayed 40 mg PO DAILY 03/30/23 03/30/23 release Allergies Allergy/AdvReac Type Severity Reaction Status Date / Time No Known Drug Allergies Allergy Unknown Verified 03/30/23 12:41 [facility] <Francisco Leal MD - Last Filed: 03/30/23 15:57> [facility] Disclaimer: The information contained in this section may have been updated after the patient was seen, as this information can be updated by other users. Medical History Bilateral otitis media Social History Smoking Status: Never smoker alcohol intake: never substance use type: denies use current occupational status: employed Travel in the last 8 weeks: Inside the [place]
[2023-03-30 13:53] LABS: Basophils % 0.6 % (0.1-2.0); Eosinophils # 0.1 K/mm3 (0.0-0.4); Eosinophils % 3.2 % (0.1-12.0); Hematocrit 37.6 % (37.0-47.0); Hemoglobin 13.1 g/dL (12.2-16.2); Lymphocytes # 1.6 K/mm3 (0.7-4.5); Lymphocytes % 35.8 % (10-50); Mean Corpuscular HGB Conc 34.7 g/dL (31.8-35.4); Mean Corpuscular Volume 89.3 fl (81-99); Monocytes # 0.3 K/mm3 (0.1-1.0); Monocytes % 6.4 % (1.7-9.3); Neutrophils # 2.4 K/mm3 (1.8-7.8); Platelet Count 160 K/mm3 (142-424); Red Blood Count 4.21 M/mm3 (4.20-5.40); Red Cell Distribution Width 12.6 % (11.5-17.5); White Blood Count 4.5 K/mm3 (4.8-10.8)
[2023-03-30 13:56] LABS: Chloride 101 mmol/L (98-107); Potassium 3.3 mmoL/L (3.5-5.1); Sodium 140 mmol/L (136-145)
[2023-03-30 13:59] LABS: Alanine Aminotransferase 45 U/L (12-78); Albumin/Globulin Ratio 1.3 (1.1-1.8); Alkaline Phosphatase 98 U/L (38-126); Anion Gap 11.3 mEq/L (5-15); Aspartate Amino Transferase 52 U/L (14-36); Bilirubin,Total 0.2 mg/dl (0.2-1.3); Blood Urea Nitrogen 9 mg/dl (7-17); Carbon Dioxide 31 mmol/L (22.0-30.0); Creatinine Clearance Estimated 165 mL/min (50-200); Estimated Glomerular Filt Rate 117 ml/min (>60); GFR (African American) 141 ML/MIN (>60); Glucose 99 mg/dl (74-100)
[2023-03-30 14:10] LABS: HCG Qualitative, Serum Negative (Negative)
[2023-03-30 14:30] LABS: Lipase 1400 U/L (23-300)
--- NOTE | 2023-03-30 14:30 | PC.NURSE ---
Notified of lipase of 1400.
--- NOTE | 2023-03-30 16:03 | PC.NURSE ---
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
[2023-03-30 16:12] LABS: Cholesterol 140 mg/dl (140-200); HDL Cholesterol 46 mg/dl (40-60); Triglycerides 185 mg/dl (30-150); VLDL Cholesterol 37 mg/dL (0-40)
--- NOTE | 2023-03-30 16:39 | EXP.HP ---
History of Present Illness *Admission Date: 03/30/23 *Reason for visit:: Abdominal pain *History of present illness: Ms. Ivan is a 32-year-old female with history of anxiety. States that last Saturday she developed onset of abdominal pain. Was seen Saturday at the [facility] where she was diagnosed with a UTI and sent home with antibiotics. She took 2 doses of Augmentin which made her sick giving her diarrhea. She stopped taking it and has felt bad since. She has eaten small amounts over the past week but has had significant pain after eating. Pain predominantly right upper quadrant but also through the whole abdomen. Took quite a bit of Imodium after her diarrhea and has not had a bowel movement since Saturday. Denies any shortness of breath, chest pain, vomiting. Does have some mild nausea. No fevers but has had occasional chills. Came to the ER because of persistent abdominal pain and poor appetite. Denies any dysuria or back pain at this time. Work-up in the ER fairly unremarkable except for positive lipase of 1400. In the setting of poor p.o. intake, persistent abdominal pain, acute pancreatitis diagnosis, ER consulted medicine for admission. On arrival to the floor, patient states the morphine is helping with her pain. Would like to try some liquids. Has not had much to eat in almost a week. No bowel movement since Saturday as stated above. Afebrile and hemodynamically stable. Fianc? at bedside. Updated of plan. [facility] Disclaimer: The information contained in this section may have been updated after the patient was seen, as this information can be updated by other users. 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 current occupational exposures/hazards: No caffeine: No Review of Systems Review of Systems Review of systems (narrative): 14 point review of systems performed, pertinent positives and negatives as per HPI Constitutional Constitutional: Denies headache(s) and Denies weakness ENT Ears, Nose, Mouth, and Throat: Denies dizziness and Denies headache(s) *Musculoskeletal Musculoskeletal: Denies numbness and Denies tingling *Neurologic Neurologic: Denies dizziness, Denies headache(s), Denies numbness, Denies tingling and Denies weakness Meds Home Medications and Allergies Home Medications Medication Instructions Recorded Confirmed Type amitriptyline 25 mg tablet 50 mg PO DAILY stomach pains after 09/24/17 03/30/23 History gb sx 30 days ##60 escitalopram oxalate 10 mg tablet 20 mg PO DAILY 30 days #30 tabs 09/16/18 03/30/23 History estradiol 1 mg tablet 1 mg PO DAILY 08/29/22 03/30/23 History colestipol 1 gram tablet 1 g PO DAILY 03/30/23 03/30/23 History omeprazole 40 mg capsule,delayed 40 mg PO DAILY 03/30/23 03/30/23 History release New Prescriptions to Start Prescriptions: Allergies Allergy/AdvReac Type Severity Reaction Status Date / Time No Known Drug Allergies Allergy Unknown Verified 03/30/23 17:48 Exam Data for Last 24 hours Vital signs and Labs for Last 24 Hours: Temp Pulse Resp BP Pulse Ox O2 Del Method 97.8 F 70 18 128/82 98 Room Air 03/30/23 12:26 03/30/23 16:00 03/30/23 16:00 03/30/23 16:00 03/30/23 16:00 03/30/23 12:26 Laboratory Results - last 24 hr 03/30/23 12:32: Urine Color Yellow, Urine Appearance Clear, Urine pH 8.5, Ur Specific [place]
--- NOTE | 2023-03-30 16:53 | PC.NURSE ---
CALLED REPORT TO JOSÉ MANUEL REDMOND.
[2023-03-31 04:00] VITALS: BP 107/64; PULSE 62; RESP 16; TEMP 36.8; O2SAT 95; BMI 28.3
[2023-03-31 07:31] VITALS: BP 106/60; PULSE 63; RESP 17; TEMP 37.1; O2SAT 97
[2023-03-31 07:42] LABS: Basophils % 0.7 % (0.1-2.0); Eosinophils # 0.2 K/mm3 (0.0-0.4); Eosinophils % 3.4 % (0.1-12.0); Hematocrit 33.4 % (37.0-47.0); Hemoglobin 11.9 g/dL (12.2-16.2); Lymphocytes # 2.2 K/mm3 (0.7-4.5); Lymphocytes % 41.7 % (10-50); Mean Corpuscular HGB Conc 35.6 g/dL (31.8-35.4); Mean Corpuscular Hemoglobin 32.1 pg (27.0-31.2); Mean Corpuscular Volume 90.1 fl (81-99); Mean Platelet Volume 8.5 fl (7.4-10.4); Monocytes # 0.3 K/mm3 (0.1-1.0); Monocytes % 5.6 % (1.7-9.3); Neutrophils # 2.5 K/mm3 (1.8-7.8); Neutrophils % 48.6 % (37.0-80.0); Platelet Count 160 K/mm3 (142-424); Red Blood Count 3.71 M/mm3 (4.20-5.40); Red Cell Distribution Width 12.8 % (11.5-17.5); White Blood Count 5.2 K/mm3 (4.8-10.8)
[2023-03-31 07:51] LABS: Chloride 103 mmol/L (98-107); Potassium 3.5 mmoL/L (3.5-5.1); Sodium 137 mmol/L (136-145)
[2023-03-31 07:54] LABS: Alanine Aminotransferase 42 U/L (12-78); Albumin Level 3.5 g/dl (3.5-5.0); Albumin/Globulin Ratio 1.4 (1.1-1.8); Alkaline Phosphatase 84 U/L (38-126); Anion Gap 9.5 mEq/L (5-15); Aspartate Amino Transferase 50 U/L (14-36); Bilirubin,Total 0.1 mg/dl (0.2-1.3); Blood Urea Nitrogen 8 mg/dl (7-17); Calcium 8.4 mg/dl (8.4-10.2); Carbon Dioxide 28 mmol/L (22.0-30.0); Creatinine Clearance Estimated 175 mL/min (50-200); Estimated Glomerular Filt Rate 117 ml/min (>60); GFR (African American) 141 ML/MIN (>60); Globulin 2.5 g/dL (1.3-3.2); Glucose 88 mg/dl (74-100)
[2023-03-31 07:55] LABS: Magnesium 1.5 mg/dl (1.6-2.3)
[2023-03-31 07:58] LABS: Lipase 1272 U/L (23-300)
--- NOTE | 2023-03-31 09:17 | HMH.PHAINT1 ---
Pharmacy Intervention Comments: MEDICATION RECONCILIATION COMPLETE USING EXTERNAL PHARMACY FILL HISTORY, PATIENT INTERVIEW, AND MOST RECENT MD OFFICE VISIT.
--- NOTE | 2023-03-31 09:55 | EXP.ACUTE.PN ---
Subjective *Date: 03/31/23 *Time: 09:59 Interval history: Patient tolerating p.o. liquids, not p.o. food as it causes pain. Necessitated hydrocodone overnight for pain control. Stable on room air. No bowel movement yet. Denies any chest pain or shortness of breath. Medical Exam Vital signs and Labs for Last 24 Hours: Vital Signs Temp Pulse Pulse Resp BP BP Pulse Ox 03/31/23 07:31 98.7 F 63 17 106/60 L 97 03/31/23 06:50 03/31/23 05:00 03/31/23 04:00 98.3 F 62 16 107/64 L 95 03/31/23 03:00 03/31/23 01:00 03/30/23 23:00 03/30/23 21:00 03/30/23 20:00 03/30/23 19:42 97.8 F 67 16 108/69 L 95 03/30/23 17:23 97.7 F 67 18 124/73 100 03/30/23 17:00 68 20 116/73 94 L 03/30/23 16:54 98.2 F 69 18 130/81 03/30/23 16:30 69 18 130/81 95 03/30/23 16:00 70 18 128/82 98 03/30/23 15:30 64 18 117/81 98 03/30/23 15:00 70 125/78 95 03/30/23 14:30 73 18 117/79 96 03/30/23 14:00 73 16 125/78 94 L 03/30/23 13:30 73 18 127/87 96 03/30/23 13:00 73 18 119/83 95 03/30/23 12:29 71 136/79 100 03/30/23 12:26 97.8 F 73 18 136/79 99 O2 Del Method 03/31/23 07:31 Room Air 03/31/23 06:50 Room Air 03/31/23 05:00 Room Air 03/31/23 04:00 Room Air 03/31/23 03:00 Room Air 03/31/23 01:00 Room Air 03/30/23 23:00 Room Air 03/30/23 21:00 Room Air 03/30/23 20:00 Room Air 03/30/23 19:42 Room Air 03/30/23 17:23 Room Air 03/30/23 17:00 03/30/23 16:54 Room Air 03/30/23 16:30 03/30/23 16:00 03/30/23 15:30 03/30/23 15:00 03/30/23 14:30 03/30/23 14:00 03/30/23 13:30 03/30/23 13:00 03/30/23 12:29 03/30/23 12:26 Room Air Intake and Output 03/30/23 03/31/23 03/31/23 23:59 07:59 15:59 Intake Total 490 / 490 Output Total 0 / 0 2 / 2 0 / 2 Balance 0 / 250 488 / 488 0 / 488 Intake: Intake, Oral Amount 490 / 490 Output: Output, Urine Amount 0 / 0 2 / 2 0 / 2 Other: Number of Voids 1 Number of Unmeasured Voids 1 0 1 Weight 80.428 kg 81.783 kg Patient Weight 03/31/23 23:59 Weight 81.783 kg Laboratory Results - last 24 hr 03/30/23 12:32: Urine Color Yellow, Urine Appearance Clear, Urine pH 8.5, Ur Specific [place] 1.015, Urine Protein Negative, Urine Glucose (UA) Negative, Urine Ketones Negative, Urine Blood Negative, Urine Nitrate Negative, Urine Bilirubin Negative, Urine Urobilinogen 0.2, Ur Leukocyte Esterase 1+ A, Urine RBC Occasional, Urine WBC 5-10, Ur Squamous Epith Cells 3-5, Urine Bacteria 1+ 03/30/23 13:40: WBC 4.5 L, RBC 4.21, Hgb 13.1, Hct 37.6, MCV 89.3, MCH 31.0, MCHC 34.7, RDW 12.6, Plt Count 160, MPV 8.0, Neut % (Auto) 54.0, Lymph % (Auto) 35.8, [place] % (Auto) 6.4, Eos % (Auto) 3.2, Baso % (Auto) 0.6, Neut # (Auto) 2.4, Lymph # (Auto) 1.6, [place] # (Auto) 0.3, Eos # (Auto) 0.1, Baso # (Auto) 0.0, Sodium 140, Potassium 3.3 L, Chloride 101, Carbon Dioxide 31 H, Anion Gap 11.3, BUN 9, Creatinine 0.60, Estimated Creat Clear 165, Estimated GFR 117, Est GFR ( Amer) 141, Glucose 99, Calcium 9.0, Total Bilirubin 0.2, AST 52 H, ALT 45, Alkaline Phosphatase 98, Total Protein 7.0, Albumin 4.0, Globulin 3.0, Albumin/Globulin Ratio 1.3, Triglycerides 185 H, Cholesterol 140, LDL Cholesterol Direct 54.10 L, VLDL Cholesterol 37, HDL Cholesterol 46, Cholesterol/HDL Ratio 3.0, Lipase 1400 H, Serum HCG, Qual Negative 03/31/23 06:51: WBC 5.2, RBC 3.71 L, Hgb 11.9 L, Hct 33.4 L, MCV 90.1, MCH 32.1 H, MCHC 35.6 H, RDW 12.8, Plt Count 160, MPV 8.5, Neut % (Auto) 48.6, Lymph % (Auto) 41.7, [place] % (Auto) 5.6, Eos % (Auto) 3.4, Baso % (Auto) 0.7, Neut # (Auto) 2.5, Lymph # (Auto) 2.2, [place] # (Auto) 0.3, Eos # (Auto) 0.2, Baso # (Auto) 0.0, Sodium 137, Potassium 3.5, Chloride 103, Carbon Dioxide 28, Anion Gap 9.5, BUN 8, Creatinine 0.60, Estimated Creat Clear 175, Estimated GFR 117, Est GFR ( Amer) 141, Glucose 88, Calcium 8.4, [place]
[2023-03-31 15:48] VITALS: BP 96/51; PULSE 67; RESP 17; TEMP 36.7; O2SAT 98
[2023-03-31 20:00] VITALS: BP 97/51; PULSE 55; RESP 16; TEMP 37; O2SAT 96
[2023-04-01 03:51] VITALS: BP 100/58; PULSE 82; RESP 16; TEMP 36.8; O2SAT 100; BMI 28.3
--- NOTE | 2023-04-01 04:29 | PC.NURSE ---
Patient slept well this shift. Patient has tolerated full liquids with no issues. Abdomen remains tender to touch. remains at bedside. Patient reports no BM thus far in shift.
[2023-04-01 06:51] LABS: Basophils % 0.4 % (0.1-2.0); Eosinophils # 0.2 K/mm3 (0.0-0.4); Hematocrit 32.6 % (37.0-47.0); Hemoglobin 11.8 g/dL (12.2-16.2); Lymphocytes # 2.5 K/mm3 (0.7-4.5); Lymphocytes % 51.3 % (10-50); Mean Corpuscular HGB Conc 36.1 g/dL (31.8-35.4); Mean Corpuscular Volume 88.6 fl (81-99); Mean Platelet Volume 8.2 fl (7.4-10.4); Monocytes # 0.3 K/mm3 (0.1-1.0); Monocytes % 6.4 % (1.7-9.3); Neutrophils # 1.9 K/mm3 (1.8-7.8); Platelet Count 159 K/mm3 (142-424); Red Blood Count 3.68 M/mm3 (4.20-5.40); Red Cell Distribution Width 12.7 % (11.5-17.5); White Blood Count 4.9 K/mm3 (4.8-10.8)
[2023-04-01 06:55] LABS: MANUAL DIFFERENTIAL MANUAL DIFFERENTIAL (MANUAL DIFF)
[2023-04-01 06:57] LABS: Chloride 104 mmol/L (98-107); Potassium 4.1 mmoL/L (3.5-5.1); Sodium 138 mmol/L (136-145)
[2023-04-01 06:59] LABS: Alanine Aminotransferase 41 U/L (12-78); Alkaline Phosphatase 84 U/L (38-126); Anion Gap 7.1 mEq/L (5-15); Aspartate Amino Transferase 53 U/L (14-36); Bilirubin,Total 0.2 mg/dl (0.2-1.3); Blood Urea Nitrogen 6 mg/dl (7-17); Carbon Dioxide 31 mmol/L (22.0-30.0); Creatinine Clearance Estimated 150 mL/min (50-200); Estimated Glomerular Filt Rate 98 ml/min (>60); GFR (African American) 118 ML/MIN (>60)
[2023-04-01 07:00] LABS: Albumin Level 3.3 g/dl (3.5-5.0); Albumin/Globulin Ratio 1.4 (1.1-1.8); Calcium 8.4 mg/dl (8.4-10.2); Globulin 2.4 g/dL (1.3-3.2); Glucose 86 mg/dl (74-100); Magnesium 1.7 mg/dl (1.6-2.3); Total Protein,Serum 5.7 g/dl (6.3-8.2)
--- NOTE | 2023-04-01 07:32 | EXP.DC.SUM ---
General Admission date:: 03/30/23 Discharge date: 04/01/23 HPI HPI HPI: Ms. Ivan is a 32-year-old female with history of anxiety. States that last Saturday she developed onset of abdominal pain. Was seen Saturday at the [facility] where she was diagnosed with a UTI and sent home with antibiotics. She took 2 doses of Augmentin which made her sick giving her diarrhea. She stopped taking it and has felt bad since. She has eaten small amounts over the past week but has had significant pain after eating. Pain predominantly right upper quadrant but also through the whole abdomen. Took quite a bit of Imodium after her diarrhea and has not had a bowel movement since Saturday. Denies any shortness of breath, chest pain, vomiting. Does have some mild nausea. No fevers but has had occasional chills. Came to the ER because of persistent abdominal pain and poor appetite. Denies any dysuria or back pain at this time. Work-up in the ER fairly unremarkable except for positive lipase of 1400. In the setting of poor p.o. intake, persistent abdominal pain, acute pancreatitis diagnosis, ER consulted medicine for admission. On arrival to the floor, patient states the morphine is helping with her pain. Would like to try some liquids. Has not had much to eat in almost a week. No bowel movement since Saturday as stated above. Afebrile and hemodynamically stable. Fianc? at bedside. Updated of plan. Hospital Course Hospital Course Hospital Course: 32-year-old female with acute pancreatitis. Symptoms have been present for 6 days. Lipase 1400 on admission. Discussed case with ER physician, requested admission for pain control, p.o. challenge, and IV hydration. Medicine agreed to admit for further management. Unclear etiology of her risk factors include alcohol consumption as she drinks bourbon and had several glasses the day before onset of symptoms or possibly her estrogen therapy as there are case reports of its relation to pancreatitis. Patient has a history of cholecystectomy. CT of abdomen reviewed showing no stranding around pancreas or dilatation of pancreatic duct or biliary tree. Pain still prominent, tolerating p.o. fluids but no p.o. nutrition. Pain responds to oral pain medication at this time. Pain is improved. Tolerating advancement in diet. Tolerating good p.o. fluids, small amounts of actual food. Stable for discharge home to continue to convalesce. Recommend gradual advancement of diet with bland low-fat diet at this time. Problems addressed as follows: Pancreatitis -Full liquid diet, monitor for tolerance of p.o. intake. Did well with tolerance of p.o. intake. Pain stable. Received 2-3 doses of hydrocodone for pain control. Tolerating Tylenol by day of discharge. Labs have remained normal. Lipase showed improvement. Given tolerance of p.o. intake, meeting criteria for discharge home. GERD: Continue pantoprazole nightly; given 1 GI cocktail for epigastric pain. Had significant improvement discomfort. No bowel movement in 4 days, initiate on bowel regimen with MiraLAX and docusate senna. Continue bowel regimen at discharge. Hypomagnesemia, replacing orally to promote bowel movement with magnesium 400 mg twice daily Held estrogen during admission. Okay to resume at discharge. Continue home escitalopram 20 mg daily Encouraged to abstain from drinking to decrease risk for recurrence of pancreatitis and ease irritation on her stomach. Follow-up with PCP in the next week for further evaluation Exam Data for Last 24 hours Vital signs and Labs for Last 24 Hours: Temp Pulse Resp BP Pulse Ox O2 Del Method 98.2 F 82 16 100/58 L 100 Room Air 04/01/23 03:51 04/01/23 03:51 04/01/23 03:51 04/01/23 03:51 04/01/23 03:51 04/01/23 06:43 Laboratory Results - last 24 hr 03/31/23 06:51: WBC 5.2, RBC 3.71 L, Hgb 11.9 L, Hct 33.4 L, MCV 90.1, MCH 32.1 H, MCHC 35.6 H, RDW 12.8, Plt Count 160, MPV 8.5, Neut % (Auto) 48.6, Lymph % (Auto)
[2023-04-01 08:00] VITALS: BP 111/62; PULSE 57; RESP 16; TEMP 36.6; O2SAT 97
[2023-04-01 08:52] LABS: Eosinophils % 2 % (0-3); Lymphocytes % 50 % (10-50); Monocytes % 7 % (2-9); Neutrophils % 41 % (42-76); Platelet Estimate Normal; RBC Morphology Normal; Total Cells Counted 100
--- NOTE | 2023-04-01 10:12 | HMH.PHAINT1 ---
Pharmacy Intervention Comments: DISCHARGE MEDICATION COUNSELING PROVIDED. DISCUSSED STOPPING OMEPRAZOLE AND STARTING PANTOPRAZOLE (FOR REFLUX, TAKE AT BEDTIME, HEADACHE POSSIBLE). PATIENT VERBALIZED NO QUESTIONS AT THIS TIME.
== END 2023-04-01 11:06 | disposition home or self-care (01) | DRG 439 ==
LOC: ER 16:02 → 2ND 16:56
PROVIDERS: Emergency Medicine; Admitting Provider Internal Medicine Adolescent Medicine; Emergency Provider Emergency Medicine; PCP Family Medicine; Visit Provider Internal Medicine Adolescent Medicine
DX: K85.90 Acute pancreatitis without necrosis or infection, unspecified (principal); N39.0 Urinary tract infection, site not specified; F41.9 Anxiety disorder, unspecified; K21.9 Gastro-esophageal reflux disease without esophagitis
CPT/HCPCS: 36415; 74177; 80053; 80061; 81001; 83690; 83735; 84703; 85007; 85025; 87086; 99285; J0696; J2405; Q9967

== ENCOUNTER 2023-08-08 08:37 | Outpatient (CLI) | payer MEDICAID, SELFPAY ==
--- NOTE | 2023-08-08 08:38 | XR_ITS ---
FINAL REPORT TECHNIQUE: Bone mineral density was calculated of the lumbar spine and hip. CLINICAL HISTORY: menopausal and female climacteric states COMPARISON: None FINDINGS: Using L1-4, the bone mineral density of the spine is 0.857 g/cm2, corresponding to T-score of -1.7. Using the left hip, the bone mineral density of the femoral neck is 0.752 g/cm2, corresponding to a T-score of -1.6. NOTE: T-score: Standard deviation compared with peak bone mass of young adult mean. *Following the recommendations of the International Society of Bone densitometry, classification of hip BMD is based on the lower of two T-scores; total hip or femoral neck. IMPRESSION: Diminished bone mineral density of the lumbar spine and left hip consistent with osteopenia. Reviewed, Interpreted and Dictated by Hilton Helm MD Transcribed by Yolanda Montgomery Authenticated and [facility]
== END 2023-08-08 23:59 ==
LOC: RAD 08:38
PROVIDERS: PCP Family Medicine; Visit Provider Obstetrics & Gynecology
DX: N95.1 Menopausal and female climacteric states (principal)
CPT/HCPCS: 77080

== ENCOUNTER 2023-08-15 15:13 | Outpatient (CLI) | payer MEDICAID, SELFPAY ==
[2023-08-15 16:59] LABS: Alanine Aminotransferase 39 U/L (12-78); Albumin Level 4.1 g/dl (3.5-5.0); Albumin/Globulin Ratio 1.6 (1.1-1.8); Alkaline Phosphatase 101 U/L (38-126); Anion Gap 7.9 mEq/L (5-15); Aspartate Amino Transferase 36 U/L (14-36); Bilirubin,Total 0.4 mg/dl (0.2-1.3); Blood Urea Nitrogen 8 mg/dl (7-17); Carbon Dioxide 30 mmol/L (22.0-30.0); Chloride 105 mmol/L (98-107); Estimated Glomerular Filt Rate 97 ml/min (>60); GFR (African American) 117 ML/MIN (>60); Globulin 2.5 g/dL (1.3-3.2); Glucose 95 mg/dl (74-100); Potassium 3.9 mmoL/L (3.5-5.1); Sodium 139 mmol/L (136-145); Total Protein,Serum 6.6 g/dl (6.3-8.2)
[2023-08-15 17:28] LABS: 25-OH Vitamin D, Total 28.3 ng/mL (30-100)
[2023-08-16 15:30] LABS: Calcium, Ionized 4.8 mg/dL (4.5-5.6)
== END 2023-08-15 23:59 ==
LOC: LAB 15:14
PROVIDERS: Visit Provider Obstetrics & Gynecology
DX: M85.80 Other specified disorders of bone density and structure, unspecified site (principal); E55.9 Vitamin D deficiency, unspecified; Z68.28 Body mass index [BMI] 28.0-28.9, adult
CPT/HCPCS: 36415; 80053; 82306; 82330

== ENCOUNTER 2023-10-09 08:00 | Outpatient (RCR) | payer MEDICAID, SELFPAY | END 2023-10-09 08:05 | disposition home or self-care (01) | LOC: OT 08:00 | PROVIDERS: Visit Provider Family Medicine | DX: M65.4 Radial styloid tenosynovitis [de Quervain] (principal) | CPT/HCPCS: 97010; 97014; 97035; 97140; 97165; G0283 ==

== ENCOUNTER 2023-10-11 18:03 | Outpatient (CLI) | payer MEDICAID, SELFPAY | END 2023-10-11 23:59 | disposition home or self-care (01) | LOC: LAB.DROPOF 18:04 | PROVIDERS: PCP Student in an Organized Health Care Education/Training Program; Visit Provider Student in an Organized Health Care Education/Training Program | DX: J02.9 Acute pharyngitis, unspecified (principal) | CPT/HCPCS: 87070 ==

== ENCOUNTER 2023-11-22 06:46 | Outpatient (CLI) | payer MEDICAID, SELFPAY | END 2023-11-22 23:59 | disposition home or self-care (01) | LOC: LAB.DROPOF 11-27 06:47 | PROVIDERS: PCP Obstetrics & Gynecology; Visit Provider Obstetrics & Gynecology | DX: Z79.899 Other long term (current) drug therapy (principal) | CPT/HCPCS: 87086 ==

== ENCOUNTER 2023-12-26 12:42 | Outpatient (CLI) | payer MEDICAID, SELFPAY ==
[2023-12-26 12:58] LABS: Basophils % 0.5 % (0.1-2.0); Eosinophils # 0.2 K/mm3 (0.0-0.4); Eosinophils % 2.6 % (0.1-12.0); Hematocrit 36.4 % (37.0-47.0); Hemoglobin 11.8 g/dL (12.2-16.2); Lymphocytes # 2.6 K/mm3 (0.7-4.5); Lymphocytes % 33.2 % (10-50); Mean Corpuscular HGB Conc 32.5 g/dL (31.8-35.4); Mean Corpuscular Hemoglobin 29.4 pg (27.0-31.2); Mean Corpuscular Volume 90.5 fl (81-99); Mean Platelet Volume 8.6 fl (7.4-10.4); Monocytes # 0.3 K/mm3 (0.1-1.0); Monocytes % 3.8 % (1.7-9.3); Neutrophils # 4.7 K/mm3 (1.8-7.8); Neutrophils % 59.9 % (37.0-80.0); Platelet Count 223 K/mm3 (142-424); Red Blood Count 4.02 M/mm3 (4.20-5.40); Red Cell Distribution Width 13.6 % (11.5-17.5); White Blood Count 7.8 K/mm3 (4.8-10.8)
[2023-12-26 13:10] LABS: Alanine Aminotransferase 48 U/L (12-78); Albumin Level 4.2 g/dl (3.5-5.0); Albumin/Globulin Ratio 1.6 (1.1-1.8); Alkaline Phosphatase 90 U/L (38-126); Anion Gap 9.3 mEq/L (5-15); Aspartate Amino Transferase 50 U/L (14-36); Bilirubin,Total 0.5 mg/dl (0.2-1.3); Blood Urea Nitrogen 8 mg/dl (7-17); Calcium 9.4 mg/dl (8.4-10.2); Carbon Dioxide 28 mmol/L (22.0-30.0); Chloride 106 mmol/L (98-107); Estimated Glomerular Filt Rate 116 ml/min (>60); GFR (African American) 140 ML/MIN (>60); Globulin 2.6 g/dL (1.3-3.2); Glucose 88 mg/dl (74-100); Potassium 3.3 mmoL/L (3.5-5.1); Sodium 140 mmol/L (136-145); Total Protein,Serum 6.8 g/dl (6.3-8.2)
[2023-12-26 14:03] LABS: HCG,Quantitative < 2 mIU/ml (0-5.42)
== END 2023-12-26 23:59 | disposition home or self-care (01) ==
LOC: LAB 12:43
PROVIDERS: Visit Provider Obstetrics & Gynecology
DX: N39.3 Stress incontinence (female) (male) (principal)
CPT/HCPCS: 36415; 80053; 84702; 85025

== ENCOUNTER 2024-01-02 06:03 | Day surgery (SDC) | payer MEDICAID, SELFPAY ==
[2024-01-01 10:04] VITALS: BMI 26.3
[2024-01-02] VITALS (14 sets, daily range): BP systolic 92–146; BP diastolic 54–76; PULSE 59–116; RESP 14–18; TEMP 36.1–36.4; O2SAT 92–100
[2024-01-02] MEDS: LACTATED RINGERS 1000ML 1,000 ML 25 ML IV (06:21)
[2024-01-02] MEDS: CEFAZOLIN SODIUM 2 GM in 0.9 % SODIUM CHLORIDE 100 ML IV (07:20)
[2024-01-02] MEDS: ROPIVACAINE 0.5% 30ML VIAL 150 MG ×2 (07:45)
[2024-01-02] MEDS: LIDOCAINE 1% W/EPI 1:100,000 20ML VIAL 20 ML (07:45)
--- NOTE | 2024-01-02 08:02 | EXP.ANES.CKL ---
[facility] Disclaimer: The information contained in this section may have been updated after the patient was seen, as this information can be updated by other users. Medical History Pancreatitis GERD (gastroesophageal reflux disease) Anxiety Urinary incontinence Vasomotor symptoms due to menopause Osteopenia Bilateral otitis media Surgical History History of cholecystectomy History of hysterectomy Family History Other Anemia Hyperlipidemia Hypertension Thyroid disorder Social History (Updated 01/02/24 @ 06:27 by Yumi Hicks RN) Smoking Status: Never smoker alcohol intake: current alcohol intake frequency: a few times a week substance use type: denies use current occupational status: employed Travel in the last 8 weeks: None household members: spouse and children housing: house 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 current occupational exposures/hazards: No caffeine: No H Anesthesia Checklist Patient Identification Patient Identification: Verbal (Name & ) Structural Data Admitted From: Home Planned Operative Procedure/s: cysto w urethral sling NPO Status Verified Time NPO: 00:00 Additional verifications Anesthesia Reactions: No Hx Blood Transfusions: Yes Blood Transfusion Reaction: No Airway Assessment Mallampati Score:: Class II C-Spine Mobility Assessed: Yes TMJ Mobility Assessed: Yes Dentition: Good Dentition Neurological Assessment Level of Consciousness: Awake, Alert and Appropriate Anesthesia Plan Anesthesia Risk discussed: Yes Anesthesia Plan: Verified ASA Class: I Anesthesia Type: General
--- NOTE | 2024-01-02 08:32 | EXP.ANES.I ---
[facility] Anesthesia Record Part I Anesthesia Record I Intake, IV Amount: 1,500 Hydration: Adequate Estimated blood loss (mL): 0 Urine output (mL): 0 Blood Pressure: 99/54 SaO2: 95 Pulse Rate: 87 Airway Patency: Patent Respiratory Rate: 14 Temperature: 97.5 F Patient is:: Awake and Stable Stable to PACU at:: 08:30
--- NOTE | 2024-01-02 08:38 | EXP.OP.NOTE ---
Date of procedure: 01/02/24 Pre-op Diagnosis:: Stress urinary incontinence Post-op Diagnosis:: Stress urinary incontinence Procedure performed:: Tension-free retropubic mid urethral sling Surgeon:: Tana Caba DO Environmental Programs Specialist(s):: Otto Park MD MANIFOLD BUILDER:: Boni Aguilar Anesthesia: GETA Estimated blood loss (mL): 50 Clinical Note:: Marilee Morales is a 33-year-old presenting today for surgical management of stress urinary incontinence. The patient was counseled on the risks, benefits, and alternatives to a mid-urethral sling, including but not limited to infection, urinary retention, mesh erosion, bleeding, injury to surrounding structures specifically including the bladder, urethra, and surrounding vasculature, voiding dysfunction, and unforeseen complications. Consent was preoperatively signed. Operative findings:: 1. Normal external genitalia. Normal appearing cervix. Mobile and mid-position urethra palpated. 2. On cystourethroscopy, a full survey of the bladder was performed after passage of the trocars, demonstrating no evidence of trocar perforation, other injury, trauma bleeding, or lesions. Brisk bilateral reflux of clear urine was visualized from the ureteral orifices. The urethra was intact without evidence of injury. Operative note:: The patient was taken to the operating room where anesthesia was induced. Preoperative antibiotics were given of 2g IV Ancef. IV access was patent. The patient was positioned in standard dorsal lithotomy using stirrups, taking care to avoid hyperextension and flexion of the joints, as well as pad any pressure points. The patient was prepped and draped in the sterile fashion. A time-out was performed. A Latex-free Harmon was placed into the bladder. The suprapubic area was marked for the site of the future trocar passes, approximately 2 cm lateral to the midline. This area was hydrodistended with Neurontin 20 mL and each site. An Allis clamp was placed 1 cm proximal to the urethral meatus and another at the level of the urethrovesical junction along the midline. The mid-urethra was palpated. Local anesthetic with epinephrine was injected in the suburethral and bilaterally in the periurethral space. A vertical incision was then made in the vaginal epithelium at the level of the mid urethra. The vaginal epithelium was dissected off the underlying fascia with Metzenbaum scissors. Allis clamps were used for traction and Metzenbaum scissors were used to dissect the periurethral tunnel to the level of the inferior pubic ramus. This was repeated on the contralateral side. On the patients left side dissection there was a small button hole in the vaginal epithelium that was easily repair with 2-0 vicryl prior to mesh placement. The bladder was confirmed to be empty. The rigid urethral catheter guide was placed in the bladder neck, deviating the bladder to the patient's left, with the trocar being passed on the patient's right. The [employer] advantage transvaginal tape trocar was placed in the previously dissected periurethral tunnel and passed retropubically, hugging the back of the pubic bone, and exiting through the suprapubic skin site. The vaginal epithelium was then inspected and no perforation was seen. Harmon was removed and a cystoscopy performed. A full survey of the bladder was performed, demonstrating no evidence of trocar perforation, other injury, bleeding, or lesions. Brisk bilateral efflux of clear urine was visualized from the ureteral orifices. The urethra was intact without evidence of injury. The cystoscope was removed, and the bladder drained. Passage of the trocar was then repeated on the patient's left side, this time with the bladder deviated to the right with the rigid urethral catheter guide. The vaginal epithelium was inspected and intact without visiable mesh. The Harmon was removed and a cystoscopy performed. A full survey of the bladder was performed again, demonstrating no evidence of trocar perforation, other injury, bleeding, or lesions. Brisk bilateral efflux of clear urine was visualized from the ureteral orifices. The urethra was intact without evidence of injury. The cystoscope was removed, and the bladder drained. The mesh was pulled to a tension free position in the mid urethra. An Allis was used to john 1 cm in the midline to ensure that the mesh was not too tight/restrictive. The plastic sheaths were removed. A packing forcep was used to ensure it was tension free. A repeat vaginal exam revealed there was a small area where the stitch had tore the vaginal epithelium. this was reinforeced with 4-0 vicryl and noted to be completely closed and intact. Curved Lockwood scissors were used to ensure tension-free mesh placement in the midline, setting the sling in place. Excess mesh was removed suprapubically and these sites are closed with Dermabond. The suburethral incision was closed with 2-0 Vicryl running locking stich, taking care to not incorporate the mesh into the closure. Hemostasis was excellent. The counts were correct. The patient tolerated the procedure well. She was brought to the recovery room in stable condition. She will be discharged after meeting all discharge criteria to include voiding independently with a normal PVR. Condition: stable Disposition: same day Specimens:: None Complications:: None
--- NOTE | 2024-01-02 10:06 | SUR.PHASEII ---
Dr. Caba at bedside.
--- NOTE | 2024-01-02 10:34 | SUR.PHASEII ---
Bladder Scanner: [id number], 269, 275 (post void residual) 1005- 235, 220, 225 (post void residual) 1035- 260, 260, 280 (post void residual)
--- NOTE | 2024-01-02 14:49 | P.PNANES_ITS ---
[facility] Anesthesia Record Part II Anesthesia Record Part II Discharge Time: 09:00 Destination: Surgical Day Care (OP Surgery) PACU nurse assessment reviewed?: Yes Patient Condition:: Good Anesthesia Complications:: None Swallowing reflex intact?: Yes Airway Patency: Patent Cyanosis?: No Blood Pressure: 108/69 SaO2: 95 Respiratory Rate: 16 Pulse Rate: 86 Temperature: 97.4 F Mental Status: Alert & Oriented Pain level:: 0 Nausea and/or vomitting:: None Intake, IV Amount: 0 Hydration: Adequate
== END 2024-01-02 11:22 | disposition home or self-care (01) ==
PROVIDERS: Visit Provider Obstetrics & Gynecology
PROC: (CPT 57288; principal; 2024-01-02 07:30)
DX: N39.3 Stress incontinence (female) (male) (principal)
CPT/HCPCS: 57288; 96374; C1771; J0690; J1885; J2250; J2405; J3010; J7120

== ENCOUNTER 2024-03-09 13:59 | Outpatient (CLI) | payer MEDICAID, SELFPAY | END 2024-03-09 23:59 | disposition home or self-care (01) | LOC: LAB.DROPOF 03-10 10:01 | PROVIDERS: PCP Student in an Organized Health Care Education/Training Program; Visit Provider Student in an Organized Health Care Education/Training Program | DX: J02.9 Acute pharyngitis, unspecified (principal) | CPT/HCPCS: 87070; 87077; 87186 ==

== ENCOUNTER 2024-05-22 08:00 | Outpatient (RCR) | payer MEDICAID, SELFPAY | END 2024-05-22 23:59 | disposition home or self-care (01) | LOC: PT 08:00 | PROVIDERS: PCP Student in an Organized Health Care Education/Training Program; Visit Provider Physician Assistant | DX: M54.50 Low back pain, unspecified (principal); M25.551 Pain in right hip | CPT/HCPCS: 97163 ==